=== PATIENT | female | born 1970 | race American Indian/Alaskan Native ===

== ENCOUNTER 2018-11-02 03:09 | Emergency (ER) | payer OTHER ==
[2018-11-02 04:02] VITALS: BP 122/73
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
== END 2018-11-02 06:30 | disposition home or self-care (01) ==
LOC: ED 03:09
DX: R68.84 Jaw pain (principal); I10 Essential (primary) hypertension; Z98.890 Other specified postprocedural states; Z87.891 Personal history of nicotine dependence; Y04.8XXA Assault by other bodily force, initial encounter; Y93.89 Activity, other specified; Y92.89 Other specified places as the place of occurrence of the external cause; Y99.8 Other external cause status
CPT/HCPCS: 70110; 99283